=== PATIENT | male | born 1985 | race Caucasian/White ===

== ENCOUNTER 2017-02-17 10:51 | Emergency (ER) | payer BC ==
[~2017-02-17] VITALS: Ht 195.6 cm; Wt 118.0 kg
[2017-02-17 11:04] VITALS: TEMP 36.6; Ht 195.6 cm; Wt 118.0 kg
[2017-02-17 11:25] LABS: URINE APPEARANCE CLEAR (CLEAR); URINE BILIRUBIN NEG (NEG); URINE COLOR YELLOW; URINE NITRITE NEG (NEG); URINE SPECIFIC GRAVITY 1.017 (1.000-1.030); UROBILINOGEN NEG (NEG)
[2017-02-17] MEDS ORDERED: OMEP20CA9 PO (11:25)
[2017-02-17] MEDS ORDERED: AMPH20TA2 PO (11:25)
[2017-02-17 11:27] LABS: MANUAL MICROSCOPIC REQUIRED? NO; REVIEW REQ? NO
[2017-02-17 11:30] LABS: BASO % 0.4 %; BASO ABS # 0.03 K/uL (0-0.2); COMPLETE YES; EOS % 2.2 %; HEMATOCRIT 49.5 % (42-52); IG% 0.3 %; LYMPH ABS # 3.07 K/uL (1.2-3.4); MEAN CORPUSCULAR HEMOGLOBIN 32.2 pg (25-34); MEAN PLATELET VOLUME 9.9 fL (7.4-10.4); NEUT % 51.1 %; PLATELET COUNT 223 K/uL (130-400); RED BLOOD COUNT 5.69 M/uL (4.7-6.1); WHITE BLOOD COUNT 7.67 K/uL (4.8-10.8)
--- NOTE | 2017-02-17 11:32 | EMERGENCY ROOM VISIT NOTE ---
History Report prepared by Trista: Varghese Dutta Under the Supervision of: Dr. Chidi Oden D.O. First contact with patient: 10:52 Stated Complaint: MENTAL HEALTH History of Present Illness The patient is a 31 year old male who presents to the Emergency Room for a mental health evaluation after making suicidal statements over the past week. Per the police, the patient sent a text message to his family at 0400 this morning, saying "Tereza is out of town, I'm alone, I think this is it, I love you all, please don't ever think my actions have anything to do with you, I just can 't handle the pain of this world, if I could live in a cocoon of harmony I'd survive. I have love for each and every one of you". The police say that the patient was found in a room at the [facility] last night, and was with another woman. The patient's , Tereza, is in [place] with family. The police say that the patient appeared embarrassed that another woman was there. The patient says that he drank a lot last night and sent a text that he understands can be construed as a suicide note. He admits to a drinking problem, and is scheduled to start outpatient treatment next week. The patient says that he has no previous suicide attempts, and he has had one discussion last week when he was drunk with his about hurting himself. The patient states that he drinks 3 or 4 times per week, and when he is not drinking, he does not feel depressed or sad. The patient states that a lot of this stems from his unhappiness with his marriage. The patient denies any suicidal or homicidal ideations. 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 He denies any physical ailments, including headaches, chest pain, shortness of breath, nausea, vomiting, or diarrhea. Source of History: patient, police Onset: Over past week Position: other (global - suicidal statements) Quality: other (sent text at 0400 this morning expressing suicidal intent) Associated Symptoms: No headache, No chest pain, No nausea, No vomiting, No diarrhea Note: Associated symptoms: Denies homicidal ideations. Review of Systems See HPI for pertinent positives & negatives. A total of 10 systems reviewed and were otherwise negative. Past Medical & Surgical Social History Problems: (1) Alcohol abuse Family History No pertinent family history Social History Alcohol Use: occasionally Marital Status: Housing Status: lives with roommate Occupation Status: student Current/Historical Medications Scheduled Amphetamine-Dextroamphetamine 20MG (Adderall 20MG), 20 MG PO BID Omeprazole (Prilosec), 20 MG PO DAILY Allergies Coded Allergies: No Known Allergies (Unverified , 02/17/17) Physical Exam Vital Signs Date Time Temp Pulse Resp B/P (MAP) Pulse Ox O2 Delivery O2 Flow Rate FiO2 02/17/17 13:49 90 18 163/105 98 Room Air 02/17/17 12:46 99 18 172/103 97 Room Air 02/17/17 11:04 36.6 102 18 187/123 96 Room Air Physical Exam GENERAL: sitting up in bed, no acute distress, disheveled EYE EXAM: normal conjunctiva OROPHARYNX: no exudate, no erythema, lips, buccal mucosa, and tongue normal and mucous membranes are moist NECK: supple, no nuchal rigidity, no adenopathy, non-tender LUNGS: Clear to auscultation. Normal chest wall mechanics HEART: no murmurs, S1 normal and S2 normal ABDOMEN: abdomen soft, non-tender, normo-active bowel sounds, no masses, no rebound or guarding. BACK: Back is symmetrical on inspection and there is no deformity, no midline tenderness, no CVA tenderness. SKIN: no rashes and no bruising UPPER EXTREMITIES: upper extremities are grossly normal. LOWER EXTREMITIES: No pitting edema. NEURO EXAM: Normal sensorium, cranial nerves II-XII grossly intact, normal speech, no gross weakness of arms, no gross weakness of legs. PSYCH: Admits to depression while drinking, previous suicidal statement while drinking. Denies any auditory or visual hallucinations. Denies any current suicidal or homicidal ideations. Medical Decision & Procedures Laboratory Results 02/17/17 11:15 Red Blood Count 5.69, Mean Corpuscular Volume 87.0, Mean Corpuscular Hemoglobin 32.2, Mean Corpuscular Hemoglobin Concent 37.0, Mean Platelet Volume 9.9, Neutrophils (%) (Auto) 51.1, Lymphocytes (%) (Auto) 40.0, Monocytes (%) (Auto) 6.0, Eosinophils (%) (Auto) 2.2, Basophils (%) (Auto) 0.4, Neutrophils # (Auto) 3.92, Lymphocytes # (Auto) 3.07, Monocytes # (Auto) 0.46, Eosinophils # (Auto) 0.17, Basophils # (Auto) 0.03 02/17/17 11:15 Test 02/17/17 11:01 02/17/17 11:10 02/17/17 11:15 Urine Color YELLOW Urine Appearance CLEAR (CLEAR) Urine pH 7.0 (4.5-7.5) Urine Specific [place] 1.017 (1.000-1.030) Urine Protein TRACE (NEG) Urine Glucose (UA) NEG (NEG) Urine Ketones NEG (NEG) Urine Occult Blood NEG (NEG) Urine Nitrite NEG (NEG) Urine Bilirubin NEG (NEG) Urine Urobilinogen NEG (NEG) Urine Leukocyte Esterase NEG (NEG) Urine WBC (Auto) 1-5 /hpf (0-5) Urine RBC (Auto) 0-4 /hpf (0-4) Urine Hyaline Casts (Auto) 1-5 /lpf (0-5) Urine Epithelial Cells (Auto) 5-10 /lpf (0-5) Urine Bacteria (Auto) NEG (NEG) Urine Opiates Screen NEG (NEG) Urine Methadone, Qualitative NEG (NEG) Urine Barbiturates NEG (NEG) Urine Phencyclidine (PCP) Level NEG (NEG) Ur Amphetamine/Methamphetamine POS (NEG) MDMA (Ecstasy) Screen NEG (NEG) Urine Benzodiazepines Screen NEG (NEG) Urine Cocaine Metabolite NEG (NEG) Urine Marijuana (THC) NEG (NEG) Bedside Glucose 116 mg/dl (70-99) White Blood Count 7.67 K/uL (4.8-10.8) Red Blood Count 5.69 M/uL (4.7-6.1) Hemoglobin 18.3 g/dL (14.0-18.0) Hematocrit 49.5 % (42-52) Mean Corpuscular Volume 87.0 fL (80-100) Mean Corpuscular Hemoglobin 32.2 pg (25-34) Mean Corpuscular Hemoglobin Concent 37.0 g/dl (32-36) Platelet Count 223 K/uL (130-400) Mean Platelet Volume 9.9 fL (7.4-10.4) Neutrophils (%) (Auto) 51.1 % Lymphocytes (%) (Auto) 40.0 % Monocytes (%) (Auto) 6.0 % Eosinophils (%) (Auto) 2.2 % Basophils (%) (Auto) 0.4 % Neutrophils # (Auto) 3.92 K/uL (1.4-6.5) Lymphocytes # (Auto) 3.07 K/uL (1.2-3.4) Monocytes # (Auto) 0.46 K/uL (0.11-0.59) Eosinophils # (Auto) 0.17 K/uL (0-0.5) Basophils # (Auto) 0.03 K/uL (0-0.2) RDW Standard Deviation 37.8 fL (36.4-46.3) RDW Coefficient of Variation 11.9 % (11.5-14.5) Immature Granulocyte % (Auto) 0.3 % Immature Granulocyte # (Auto) 0.02 K/uL (0.00-0.02) Anion Gap 11.0 mmol/L (3-11) Est Creatinine Clear Calc Drug Dose 124.7 ml/min Estimated GFR () 91.5 Estimated GFR (Non- 79.0 BUN/Creatinine Ratio 7.2 (10-20) Calcium Level 8.6 mg/dl (8.5-10.1) Total Bilirubin 0.6 mg/dl (0.2-1) Direct Bilirubin 0.1 mg/dl (0-0.2) Aspartate Amino Transf (AST/SGOT) 75 U/L (15-37) Alanine Aminotransferase (ALT/SGPT) 146 U/L (12-78) Alkaline Phosphatase 90 U/L (45-117) Total Protein 8.2 gm/dl (6.4-8.2) Albumin 4.4 gm/dl (3.4-5.0) Thyroid Stimulating Hormone (TSH) 2.360 uIu/ml (0.300-4.500) Ethyl Alcohol mg/dL 31.0 mg/dl (0-3) Laboratory results per my review. ED Course ED COURSE: Vital signs were reviewed and showed hypertensive and tachycardic vitals. The patients medical record was reviewed The above diagnostic studies were performed and reviewed. ED treatments and interventions as stated above. 1054: The patient was evaluated in room A6. A complete history and physical examination was performed. 1335: I talked to the patient's on the phone. 1345: I reevaluated the patient and had a long conversation with him. He explained that he does not want to harm himself or anyone else. He denies any auditory or visual hallucinations, and says that he just gets depressed when drunk. He does not want to come in. I discussed with the psychiatric window caser, and the patient is not 302 criteria. I discussed my findings with the patient and he understands and agrees with the treatment plan. Based on the patients age, coexisting illnesses, exam and lab findings the decision to treat as an outpatient was made. The patient remained stable while under my care. The patient appeared well at the time of discharge. Medical Decision Differential diagnosis: Etiologies such as mood disorder, infection, hypoglycemia, electrolyte abnormalities, cardiac sources, intracerebral event, toxicologic, neurologic, as well as others were entertained. Medication Reconciliation: I attest that I have personally reviewed the patient' s current medication list. Blood pressure screening: Patient was found to have an elevated blood pressure and was referred to their primary doctor for recheck and further treatment. Patient is a 31-year-old male who presents the ER brought in by police following sending out a text message at 4 AM as listed above. He was brought in by police following being found in a hotel with another woman other than his . He was remorseful about signing out the text message. He notes that he gets depressed when he drinks as he is in a poor relationship with his . He notes no previous suicide attempts. He is not depressed throughout the day. He is able to go to school and is looking forward to complaining his courses and eventually graduating. He does admit that he has an alcohol problem. He is scheduled for Saturday for an appointment in regards to this. His is currently in [place]. I did discuss with his , she notes that the only time he has made suicidal statements is when he is drunk. She does not believe that he would actually harm himself. She notes that he also has a fair amount animosity for his family. I did attempt to contact his sister but was unsuccessful as no one picked up. He was evaluated by my psychiatric career guidance technician Allie who notes that he scores extremely low on the suicide risk factors and has no clear 302 criteria which I agree with. Labs are fairly unremarkable with exception of mild transaminitis which I favor secondary to his drinking. He had no complaints. Alcohol was 31 at 11 AM and the text message was sent at 4 AM. Based on the blood work he was clearly intoxicated at that point. As the patient requested to leave and he had no 302 criteria and he was reasonable with follow up, no previous suicide attempts before or psychiatric history before and discharged to follow-up with his primary care doctor. His will be getting a flight back tonight from [place].Discussed with Pt concerning signs and symptoms to watch out for. Pt was instructed to follow up with their PCP and discussed with the patient their option to return to the ED at anytime for persistent or worsening symptoms. The appropriate anticipatory guidance and out-patient management, including indications for return to the emergency department, were explained at length to the patient and understood. Impression Primary Impression: Alcohol abuse Additional Impression: Depression Scribe Attestation The scribe's documentation has been prepared under my direction and personally reviewed by me in its entirety. I confirm that the note above accurately reflects all work, treatment, procedures, and medical decision making performed by me. Departure Information Dispostion Home / Self-Care Referrals Viji Fang D.O. (PCP) Patient Instructions Alcohol Abuse - [facility], Depression Causes, Depression Counseling, My [facility] Additional Instructions Please follow up with your primary care doctor with in the next 24 hours. Any worsening of your symptoms, please return to the ED immediately. This includes thoughts of self-harm, thoughts of harming someone else, worsening depression and thoughts of hopelessness, or any other concerning signs or symptoms from your standpoint. Please keep your appointment on Saturday for outpatient treatment. Please try to refrain from drinking alcohol. Problem Qualifiers Additional Impression: Depression Depression Type: unspecified Qualified Codes: F32.9 - Major depressive disorder, single episode, unspecified
[2017-02-17 11:52] LABS: BUN/CREATININE RATIO 7.2 (10-20); CALCIUM 8.6 mg/dl (8.5-10.1); CREATININE 1.2 mg/dl (0.60-1.40); POTASSIUM 3.5 mmol/L (3.5-5.1)
[2017-02-17 11:54] LABS: BENZODIAZEPINE, URINE NEG (NEG); COCAINE,URINE NEG (NEG); PHENCYCLIDINE, URINE NEG (NEG)
[2017-02-17 12:03] LABS: THYROID STIMULATING HORMONE 2.36 uIu/ml (0.300-4.500)
[2017-02-17 13:49] VITALS: BP 163/105; PULSE 90; O2SAT 98
== END 2017-02-17 14:00 | disposition home or self-care (01) ==
LOC: EDBD 10:51 → EDSEX 10:51 → C.EDA 10:51
DX: F10.10 Alcohol abuse, uncomplicated (principal); F32.9 Major depressive disorder, single episode, unspecified

== ENCOUNTER → 2018-01-29 | Outpatient (CLI) | payer BC ==
[~2018-01-29] MED LIST: AMPH20TA2 PO; KETO10TA PO; OMEP-334 PO; OMEP20CA9 PO; OXYC-57 PO; VNTHFA/IN INH
--- NOTE | 2018-01-29 08:18 | DIAGNOSTIC IMAGING REPORT ---
MRI OF THE RIGHT SHOULDER CLINICAL HISTORY: Right shoulder pain. Limited range of motion. COMPARISON STUDY: No priors. TECHNIQUE: MRI of the right shoulder was performed utilizing various T1 and T2 weighted sequences in the axial, sagittal, coronal planes. IV contrast was not administered for this examination. Note that interpretation is suboptimal without plain film correlate. FINDINGS: Rotator cuff: The supraspinatus tendon is preserved. There is likely mild intrasubstance tearing of infraspinatus tendon seen on image #7. The teres minor and subscapularis tendons are intact. There is no subacromial or subdeltoid bursal fluid. The acromioclavicular joint is unremarkable. Biceps tendon: The long head of the biceps tendon is normal in signal intensity and located within the bicipital groove. The anchor is maintained. Labrum: There is circumferential tearing of the labrum. Shoulder joint: There is no joint effusion. There is a reverse Hill-Sachs lesion, with evidence of a reverse bony Bankart injury. The osteochondral fragment arising from the posterior glenoid measures at least 4 mm. There is focal discontinuity of the articular cartilage of the glenoid. Particular cartilage of the humeral head appears maintained. Musculature and soft tissues: The musculature of the shoulder is normal in bulk. Mild edema is suggested within the body of the infraspinatus muscle. No atrophy is seen. There is a large multiloculated cystic lesion identified along the posterior aspect of the glenoid and extending into the supraspinatus and infraspinatus fossa. This measures approximately 6 x 3 x 2 cm. IMPRESSION: 1. There is evidence of a reverse Hill-Sachs lesion and a reverse bony Bankart lesion. 2. The osteochondral fragment along the posterior aspect of the glenoid measures at least 4 mm with focal discontinuity of the articular cartilage. 3. There is circumferential tearing of the labrum. 4. There is a large cystic lesion measuring up to 6 cm along the posterior aspect of the glenoid which extends into the supraspinatus and infraspinatus fossa. There is mild edema within the body of infraspinatus, and this may be related to a compression syndrome. 5. Question mild intrasubstance tearing of the infraspinatus tendon. The rotator cuff is otherwise intact. Electronically signed by: Willie Mason M.D. 01/29/2018 8:17 AM Dictated Date/Time: 01/29/2018 8:05 AM
== END | disposition home or self-care (01) ==
LOC: C.MRIBC 07:04
PROVIDERS: ATTEND Orthopaedic Surgery
DX: S42.291A Other displaced fracture of upper end of right humerus, initial encounter for closed fracture (principal); S43.431A Superior glenoid labrum lesion of right shoulder, initial encounter; S43.401A Unspecified sprain of right shoulder joint, initial encounter; X58.XXXA Exposure to other specified factors, initial encounter; M24.111 Other articular cartilage disorders, right shoulder